=== PATIENT | male | born 1995 | race African-American/Black ===

== ENCOUNTER 2017-01-05 21:17 | Emergency (ER) | payer MEDICAID ==
[~2017-01-05] VITALS: Ht 182.9 cm; Wt 76.0 kg
[~2017-01-05 21:17] MED LIST: CYCL100S4; LISINOPRIL; MAGN100C3
[2017-01-05] MEDS ORDERED: KETOROLAC 30MG/ML VIAL IV ONE (23:00)
[2017-01-05 23:25] VITALS: BP 104/68
== END 2017-01-05 23:26 | disposition home or self-care (01) ==
LOC: ER 21:17
DX: K64.4 Residual hemorrhoidal skin tags (principal); I51.9 Heart disease, unspecified; K76.9 Liver disease, unspecified; F12.10 Cannabis abuse, uncomplicated; Z95.0 Presence of cardiac pacemaker; Z94.4 Liver transplant status
CPT/HCPCS: 96374; 99284; J1885; Z7610

== ENCOUNTER 2021-08-06 13:02 | Emergency (ER) | payer MEDICAID ==
[~2021-08-06] VITALS: Ht 182.9 cm; Wt 84.0 kg
[~2021-08-06 13:02] MED LIST changes: +TACR1CAP MT
[2021-08-06] MEDS ORDERED: IBUPROFEN 600MG TABLET PO STA (13:24)
[2021-08-06] MEDS ORDERED: IBUP-2029 MT (15:02)
[2021-08-06 15:24] VITALS: BP 118/78
== END 2021-08-06 15:24 | disposition home or self-care (01) ==
LOC: ER 13:02
DX: S50.01XA Contusion of right elbow, initial encounter (principal); S30.0XXA Contusion of lower back and pelvis, initial encounter; R51.9 Headache, unspecified; I51.9 Heart disease, unspecified; K76.9 Liver disease, unspecified; Y93.67 Activity, basketball; Y92.9 Unspecified place or not applicable; Z95.0 Presence of cardiac pacemaker
CPT/HCPCS: 71045; 73080; 99284

== ENCOUNTER 2025-03-01 19:08 | Emergency (ER) | payer MEDICAID ==
[~2025-03-01] VITALS: Ht 177.8 cm; Wt 91.0 kg
[~2025-03-01 19:08] MED LIST changes: +EMPA10TA PO; +IBUP-2029 MT; +LOSA25TA26 PO; +METO-396 PO; +MEX150 PO; +SOTA80TA MT
[2025-03-01 19:25] VITALS: O2SAT 98
[2025-03-01] MEDS ORDERED: OFLO5DRO4 EACH EAR (22:16)
[2025-03-01] MEDS ORDERED: AMOX1TAB16 MT (22:16)
[2025-03-01 22:42] VITALS: BP 133/87; PULSE 95; RESP 13; TEMP 36.9; O2SAT 99
== END 2025-03-01 22:48 | disposition home or self-care (01) ==
LOC: ER 19:08
DX: H60.91 Unspecified otitis externa, right ear (principal); Z79.899 Other long term (current) drug therapy; Z98.890 Other specified postprocedural states
CPT/HCPCS: 99283